=== PATIENT | female | born 1950 | race Caucasian/White ===

== ENCOUNTER → 2017-01-13 | Outpatient (REF) | payer MEDICARE | LOC: M LABDRWAD 09:27 | PROVIDERS: ATTEND Nurse Practitioner Family | DX: R60.9 Edema, unspecified (principal) ==

== ENCOUNTER → 2017-01-24 | Outpatient (CLI) | payer MEDICARE ==
--- NOTE | 2017-01-24 13:12 | REP ---
Bilateral lower extremity deep vein duplex ultrasound: The deep veins demonstrate normal compression, normal Doppler color flow and normal Doppler waveforms with respiration augmentation at multiple levels from the popliteal veins to the common femoral veins bilaterally. Impression: There is no deep vein thrombus in the right lower extremity or left lower extremity. Signed by Vladislav Ellis MD 01/24/2017 01:03 P
== END ==
LOC: M RAD 12:09
PROVIDERS: ATTEND Nurse Practitioner Family
DX: R60.0 Localized edema (principal); R79.1 Abnormal coagulation profile

== ENCOUNTER 2020-12-15 08:01 | Emergency (ER) | payer MEDICARE ==
[~2020-12-15] VITALS: Ht 167.6 cm; Wt 129.4 kg
[2020-12-15] MEDS ORDERED: HYDR200T3 PO (08:15)
[2020-12-15] MEDS ORDERED: INDE80CA9 PO (08:16)
[2020-12-15] MEDS ORDERED: METH2.5T48 PO (08:16)
[2020-12-15] MEDS ORDERED: HYDR12.55 PO (08:16)
[2020-12-15] MEDS ORDERED: CYMB1CAP5 PO (08:16)
[2020-12-15] MEDS ORDERED: NS 1,000 ML IV ONE (08:45)
[2020-12-15] MEDS ORDERED: ONDANSETRON 4MG/2ML VIAL IV ONE (08:45)
[2020-12-15] MEDS ORDERED: MORPHINE 2 MG/ML 1ML VIAL (J2270) IV PRN (08:45)
[2020-12-15 09:00] LABS: BASO # 0.1 10^3/uL (0.0-0.2); BASO % 0.9 % (0.0-1.0); EOS # 0.2 10^3/uL (0.0-0.5); EOS % 2.6 % (0.0-3.0); HEMATOCRIT 41.6 % (36.0-47.0); HEMOGLOBIN 14.2 g/dl (12.0-15.5); LYMPH # 1.6 10^3/uL (1.5-5.0); MEAN CORPUSCULAR HEMOGLOBIN 30.7 pg (27.0-33.0); MEAN CORPUSCULAR HGB CONC 34.1 g/dl (32.0-36.5); MEAN CORPUSCULAR VOLUME 89.8 fl (80.0-96.0); MONO # 0.9 10^3/uL (0.0-0.8); MONO % 11.5 % (2.0-8.0); NEUTROPHILS # 4.8 10^3/uL (1.5-8.5); NEUTROPHILS % 63.5 % (36.0-66.0); PLATELET COUNT, AUTOMATED 301 10^3/uL (150-450); RED BLOOD COUNT 4.63 10^6/uL (4.00-5.40); WHITE BLOOD COUNT 7.6 10^3/uL (4.0-10.0)
[2020-12-15 09:22] LABS: ALBUMIN 3.4 GM/DL (3.2-5.2); ALT/SGPT 30 U/L (12-78); BILIRUBIN,DIRECT 0.2 MG/DL (0.0-0.2); BILIRUBIN,TOTAL 0.7 MG/DL (0.2-1.0); LIPASE 128 U/L (73-393); TOTAL PROTEIN 7.3 GM/DL (6.4-8.2)
--- NOTE | 2020-12-15 09:44 | REP ---
INDICATION: ruq pain, hx gallstones COMPARISON: None. TECHNIQUE: Real time cain scale ultrasound examination using curved array transducer. FINDINGS: Liver is echogenic suggesting fatty infiltration. No focal hepatic lesion identified. Pancreas is incompletely evaluated due to interposed bowel gas. The gallbladder includes single gallstone at the neck of the gallbladder without wall thickening or pericholecystic fluid. No biliary ductal dilatation is appreciated and the common bile duct measures 6.0 mm diameter. Right kidney is normal in reniform shape without hydronephrosis and measures 11.7 x 5.7 x 5.3 cm. No ascites in the visualized right upper quadrant. IMPRESSION: Cholelithiasis without sonographic evidence for acute cholecystitis. Hepatosteatosis <Electronically signed by Jason Samuel > 12/15/20 [id number]
[2020-12-15 10:49] LABS: BLOOD UREA NITROGEN 15 MG/DL (7-18); CALCIUM LEVEL 9.1 MG/DL (8.8-10.2); CARBON DIOXIDE LEVEL 28 MEQ/L (21-32); CHLORIDE LEVEL 99 MEQ/L (98-107); CK-MB VALUE MASS 1.4 NG/ML (<3.6); CPK CREATINE PHOSPHOKINASE 90 U/L (26-192); CREATININE FOR GFR 0.73 MG/DL (0.55-1.30); GLOMERULAR FILTRATION RATE > 60.0 (>39); GLUCOSE, FASTING 110 MG/DL (70-100); MB/CK RELATIVE INDEX 1.56 (< OR =4); POTASSIUM SERUM 3.6 MEQ/L (3.5-5.1); SODIUM LEVEL 132 MEQ/L (136-145); TROPONIN I < 0.02 NG/ML (< 0.10)
[2020-12-15] MEDS ORDERED: HYDR-3713 PO (11:13)
[2020-12-15] MEDS ORDERED: PEPC1TAB5 PO (11:13)
[2020-12-15] MEDS ORDERED: ONDA4TAB6 PO (11:13)
[2020-12-15 11:30] VITALS: BP 154/83
--- NOTE | 2020-12-15 19:02 | ECGEPIP ---
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 Order Number: [id number] Reading MD: Dennis Dia Measurements Intervals Johnston Rate: 61 P: 34 VT: QRS: 8 QRSD: 96 T: 10 QT: 452 QTc: 455 Interpretive Statements Normal Sinus Rhythm Nonspecific ST T wave changes No prior ECG for comparison Electronically Signed on 12-15-2020 19:02:13 EDT by Dennis Dia
== END 2020-12-15 11:39 | disposition home or self-care (01) ==
LOC: M ED 08:01
DX: K80.20 Calculus of gallbladder without cholecystitis without obstruction (principal); K76.0 Fatty (change of) liver, not elsewhere classified; Z79.899 Other long term (current) drug therapy
CPT/HCPCS: 76705; 80048; 80076; 81001; 82550; 82553; 83690; 84484; 85025; 87086; 93005; 96361; 96374; 96375; 99284; J2270; J2405

== ENCOUNTER → 2021-01-28 | Outpatient (CLI) | payer MEDICARE ==
[~2021-01-28] MED LIST: BIOT1TAB PO; CYMB1CAP5 PO; FOLI1TAB11 PO; HYDR-3713 PO; HYDR12.55 PO; HYDR200T3 PO; INDE80CA9 PO; METH2.5T48 PO; ONDA4TAB6 PO; PEPC1TAB5 PO; POTA1TAB14
== END ==
LOC: M LABSMTC 09:46
PROVIDERS: ATTEND Anesthesiology
DX: Z01.818 Encounter for other preprocedural examination (principal); Z11.52 Encounter for screening for COVID-19

== ENCOUNTER 2021-02-02 09:29 | Day surgery (SDC) | payer MEDICARE ==
[~2021-02-02] VITALS: Ht 167.6 cm; Wt 128.7 kg
[~2021-02-02 09:29] MED LIST changes: +LR 1,000 ML IV ONE
[2021-02-02] MEDS ORDERED: propofoL 200 MG/20 ML VIAL As Ordered ONE (12:43)
[2021-02-02] MEDS ORDERED: LIDOCAINE 2% 100MG/5ML SDV (FOR ANES.) As Ordered ONE (12:43)
[2021-02-02] MEDS ORDERED: ROCURONIUM BROMIDE 50 MG/5 ML VIAL As Ordered ONE (12:43)
[2021-02-02] MEDS ORDERED: MIDAZOLAM INJ 2MG/2ML VIAL (J2250 PER 1MG) As Ordered ONE (12:43)
[2021-02-02] MEDS ORDERED: fentaNYL 250 MCG/5 ML INJECTION (J3010) As Ordered ONE (12:43)
[2021-02-02] MEDS ORDERED: BUPIVACAINE/EPIN 0.25% 30 ML VIAL As Ordered ONE (13:16)
[2021-02-02] MEDS ORDERED: LACRILUBE (AKWA TEARS) OPHTH OINT 3.5 GM As Ordered ONE (13:45)
[2021-02-02] MEDS ORDERED: KETOROLAC 60MG 2ML VIAL As Ordered ONE (14:02)
[2021-02-02] MEDS ORDERED: dexameTHASONE 4 MG/ML 1ML VIAL (J1100 PER 1MG) As Ordered ONE (14:02)
[2021-02-02] MEDS ORDERED: ACETAMINOPHEN 1000MG 100ML IV BTL (OFIRMEV) (J0131 PER 10MG) As Ordered ONE (14:02)
[2021-02-02] MEDS ORDERED: ONDANSETRON 4MG/2ML VIAL As Ordered ONE (14:02)
[2021-02-02] MEDS ORDERED: SUGAMMADEX SODIUM 500 MG/5 ML VIAL (BRIDION) As Ordered ONE (14:07)
--- NOTE | 2021-02-02 14:48 | RO ---
OPERATIVE NOTE DATE OF OPERATION: 02/02/2021 PREOPERATIVE DIAGNOSIS: Symptomatic cholelithiasis. POSTOPERATIVE DIAGNOSIS: Symptomatic cholelithiasis. PROCEDURE: Robotic cholecystectomy. SURGEON: Vladislav See DO [employer] B[employer] MIXER: CATY Gutierrez ANESTHESIA: General. ESTIMATED BLOOD LOSS: 5 mL COMPLICATIONS: None. INDICATIONS FOR PROCEDURE: The patient is a 70-year-old female who presents with right upper quadrant pain, found to have symptomatic cholelithiasis. Recommendation was to proceed with robotic cholecystectomy. Risks and benefits of the procedure not limited to but including bleeding, infection, hernias, damage to surrounding structures, need for further surgery were discussed in detail with the patient. Informed consent was obtained and procedure was planned. DESCRIPTION OF PROCEDURE: The patient was brought back to operating room 7. After sufficient sedation, the abdomen was sterilely prepped and draped. Next, a timeout was done to confirm proper patient and proper procedure. Following that, an 8 mm incision was made in the left upper quadrant. A Veress needle was inserted and the abdomen was insufflated to 15 mmHg. The Veress needle was then removed and an 8 mm OptiView port was used to gain access to the abdomen. Once the abdomen was entered, three more ports were placed into the right upper quadrant. Next, the robot was docked to the ports. The fundus of the gallbladder was elevated up towards the right shoulder. Omental adhesions were dissected free using sharp dissection. The neck of the gallbladder was then elevated. The cystic duct and cystic artery were dissected free using a combination of blunt and sharp dissection. They were both then doubly clipped and cut. The gallbladder was then dissected free from the gallbladder fossa using electrocautery. It was removed and placed inside of a 5 mm EndoCatch bag and brought out through the right lateral port site. Once the gallbladder was removed, the abdomen was examined for hemostasis. The ports were then removed. The abdomen was desufflated. The skin incisions were closed with 4-0 Vicryl subcuticular sutures. The abdomen was cleaned and dried and Steri-Strips, 4x4 and tape were applied.
[2021-02-02] MEDS ORDERED: LR 1,000 ML IV SCH (15:05)
[2021-02-02] MEDS ORDERED: oxyCODONE 5MG TAB PO PRN (15:05)
[2021-02-02] MEDS ORDERED: fentaNYL 100 MCG/2 ML INJECTION (J3010) IV PRN (15:05)
[2021-02-02] MEDS ORDERED: ONDANSETRON 4MG/2ML VIAL IV PRN (15:05)
[2021-02-02] MEDS ORDERED: NORCO, ANEXSIA 5/325MG TABLET (HYDROcodone/ACETAMINOPHEN) PO PRN (15:05)
[2021-02-02] MEDS ORDERED: LABETALOL 100MG/20ML VIAL IV PRN (15:10)
[2021-02-02 15:13] VITALS: BP 144/78
== END 2021-02-02 15:55 | disposition home or self-care (01) ==
LOC: M SDC 09:29
PROVIDERS: ATTEND Surgery
DX: K80.20 Calculus of gallbladder without cholecystitis without obstruction (principal); I10 Essential (primary) hypertension; K21.9 Gastro-esophageal reflux disease without esophagitis; Z79.899 Other long term (current) drug therapy; Z92.21 Personal history of antineoplastic chemotherapy
CPT/HCPCS: 47562; 88304; J0131; J1100; J1885; J2250; J2405; J3010; S2900

== ENCOUNTER 2021-03-16 13:50 | Emergency (ER) | payer MEDICARE ==
[~2021-03-16] VITALS: Ht 167.6 cm; Wt 130.1 kg
[~2021-03-16 13:50] MED LIST changes: -LR 1,000 ML IV ONE
[2021-03-16] MEDS ORDERED: CALCCAP4 PO (14:21)
--- NOTE | 2021-03-16 16:10 | REP ---
INDICATION: fall COMPARISON: None. TECHNIQUE: AP, lateral, bilateral oblique views. FINDINGS: Soft tissue swelling is suggested. Osseous structures demonstrate age-related osteopenia and degenerative changes. Small acute versus chronic avulsion fracture at the medial malleolus requires clinical correlation. Ankle mortise appears intact. IMPRESSION: Soft tissue swelling. Acute versus old small avulsion fracture at the medial malleolus. <Electronically signed by Jason Samuel > 03/16/21 [id number]
--- NOTE | 2021-03-16 16:13 | REP ---
INDICATION: fall. COMPARISON: None. TECHNIQUE: AP and lateral views FINDINGS: No acute fracture or destructive osseous lesion. There is a knee arthroplasty in place. IMPRESSION: No acute osseous abnormality. <Electronically signed by Tom Hernández > 03/16/21 [id number]
[2021-03-16 16:48] VITALS: BP 170/100
== END 2021-03-16 16:49 | disposition home or self-care (01) ==
LOC: M ED 13:50
DX: S82.55XA Nondisplaced fracture of medial malleolus of left tibia, initial encounter for closed fracture (principal); W11.XXXA Fall on and from ladder, initial encounter; Y92.009 Unspecified place in unspecified non-institutional (private) residence as the place of occurrence of the external cause; Y93.9 Activity, unspecified; Y99.9 Unspecified external cause status; I10 Essential (primary) hypertension; Z79.899 Other long term (current) drug therapy

== ENCOUNTER → 2024-01-05 | Outpatient (REF) | payer MEDICARE ==
[~2024-01-05] MED LIST changes: +CALCCAP4 PO; -HYDR200T3 PO; +HYDR200T46 PO; +ONDA-282 PO; -ONDA4TAB6 PO; +POTA-298; -POTA1TAB14
[2024-01-05 17:43] LABS: APPEARANCE, URINE CLOUDY (CLEAR); BACTERIA, URINE AUTO 3+ (NEGATIVE); BILIRUBIN, URINE AUTO NEGATIVE (NEGATIVE); BLOOD, URINE BLOOD NEGATIVE (NEGATIVE); COLOR, URINE YELLOW (YELLOW); GLUCOSE, URINE (UA) AUTO NEGATIVE (NEGATIVE); KETONE, URINE AUTO NEGATIVE (NEGATIVE); LEUKOCYTE ESTERASE, URINE AUTO 1+ (NEGATIVE); MUCUS, URINE SMALL (NEGATIVE); NITRITE, URINE AUTO POSITIVE (NEGATIVE); PROTEIN, URINE AUTO NEGATIVE (NEGATIVE); RBC, URINE AUTO 1 /HPF (0-3); SQUAMOUS EPITHELIAL CELL UR AU 23 /HPF (0-6); UROBILINOGEN, URINE AUTO 0.2 mg/dL (0.0-2.0); WBC, URINE AUTO 49 /HPF (0-3)
== END ==
LOC: M LAB REF 16:15
DX: R30.0 Dysuria (principal); R32 Unspecified urinary incontinence

== ENCOUNTER 2025-02-20 09:31 | Emergency (ER) | payer MEDICARE ==
[~2025-02-20] VITALS: Ht 167.6 cm; Wt 113.6 kg
[2025-02-20 09:35] VITALS: TEMP 96.4
[2025-02-20 11:20] LABS: BASO # 0.0 10^3/uL (0.0-0.2); BASO % 0.6 % (0.0-1.0); EOS # 0.1 10^3/uL (0.0-0.5); EOS % 1.0 % (0.0-3.0); LYMPH # 1.4 10^3/uL (1.5-5.0); LYMPH % 19.7 % (24.0-44.0); MONO # 0.7 10^3/uL (0.0-0.8); MONO % 9.2 % (2.0-8.0); NEUTROPHILS # 4.9 10^3/uL (1.5-8.5); NEUTROPHILS % 69.2 % (36.0-66.0); PLATELET COUNT, AUTOMATED 275 10^3/uL (150-450)
[2025-02-20] MEDS ORDERED: ISOVUE-370 76% 100 ML VIAL As Ordered ONE (11:26)
[2025-02-20 11:32] LABS: INR 1.07
[2025-02-20] MEDS: NS (Normal Saline) 0.9% 1,000 ML IV ONE (11:32)
[2025-02-20 11:50] LABS: ALT/SGPT 27.0 U/L (7.0-40); AST/SGOT 34.0 U/L (<34)
[2025-02-20 14:45] VITALS: BP 109/67; O2SAT 97
== END 2025-02-20 15:01 | disposition home or self-care (01) ==
LOC: M ED 09:31
DX: R19.7 Diarrhea, unspecified (principal); N28.1 Cyst of kidney, acquired; K76.0 Fatty (change of) liver, not elsewhere classified; K57.30 Diverticulosis of large intestine without perforation or abscess without bleeding; I10 Essential (primary) hypertension; K21.9 Gastro-esophageal reflux disease without esophagitis; Z90.89 Acquired absence of other organs; Z96.643 Presence of artificial hip joint, bilateral; Z96.653 Presence of artificial knee joint, bilateral; Z79.899 Other long term (current) drug therapy
CPT/HCPCS: 36415; 74177; 80047; 80076; 83605; 83690; 85025; 85610; 85730; 93005; 93041; 99284; Q9967